=== PATIENT | male | born 1995 | race Caucasian/White ===

== ENCOUNTER 2018-05-21 08:43 | Emergency (ER) | payer BC, OTHER ==
[~2018-05-21] VITALS: Ht 172.7 cm; Wt 63.5 kg
[2018-05-21 08:47] VITALS: BP_SYST 141
== END 2018-05-21 09:08 | disposition home or self-care (01) ==
LOC: SED 08:43
DX: K13.0 Diseases of lips (principal)
CPT/HCPCS: 99283

== ENCOUNTER 2020-01-20 20:13 | Emergency (ER) | payer SELFPAY ==
[~2020-01-20] VITALS: Ht 172.7 cm; Wt 63.5 kg
[2020-01-20 20:30] VITALS: BP_SYST 130
--- NOTE | 2020-01-20 20:40 | NUR ---
Patient triaged and placed in waiting room. VSS and patient appears in no acute distress at this time. Accompanied by self , awaiting available bed, and MD notified of need for MSE.
--- NOTE | 2020-01-20 20:40 | NUR ---
Patient to ER bed 01 to gown for evaluation. Side rails up.
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
--- NOTE | 2020-01-20 21:10 | NUR ---
X-ray at bedside.
[2020-01-20] MEDS ORDERED: IBUPROFEN 400 MG TABLET PO ONE (21:30)
[2020-01-20 22:40] VITALS: BP_SYST 118
--- NOTE | 2020-01-20 22:40 | NUR ---
Patient given written and verbal discharge instructions and verbalizes understanding. ER MD discussed with patient the results and treatment provided. Patient in stable condition. ID arm band removed. NO Rx given. Patient educated on pain management and to follow up with PMD. Pain Scale 2/10. Opportunity for questions provided and answered. Medication side effect fact sheet provided.
== END 2020-01-20 22:40 | disposition home or self-care (01) ==
LOC: SED 20:13
DX: S89.92XA Unspecified injury of left lower leg, initial encounter (principal); V29.9XXA Motorcycle rider (driver) (passenger) injured in unspecified traffic accident, initial encounter; Y93.89 Activity, other specified; Y92.89 Other specified places as the place of occurrence of the external cause; Y99.8 Other external cause status
CPT/HCPCS: 73564; 99283

== ENCOUNTER 2020-04-08 11:13 | Emergency (ER) | payer MEDICAID ==
[~2020-04-08] VITALS: Ht 172.7 cm; Wt 63.5 kg
[2020-04-08 11:17] VITALS: BP_SYST 141
[2020-04-08 13:08] VITALS: BP_SYST 141
== END 2020-04-08 13:09 | disposition home or self-care (01) ==
LOC: SED 11:13
DX: S83.8X2A Sprain of other specified parts of left knee, initial encounter (principal); X50.1XXA Overexertion from prolonged static or awkward postures, initial encounter; Y93.39 Activity, other involving climbing, rappelling and jumping off; Y92.89 Other specified places as the place of occurrence of the external cause; Y99.8 Other external cause status
CPT/HCPCS: 73564; 99283

== ENCOUNTER 2023-12-27 22:57 | Emergency (ER) | payer OTHER, MEDICAID ==
[~2023-12-27] VITALS: Ht 172.7 cm; Wt 65.8 kg
[2023-12-27 23:04] VITALS: BP_SYST 134; PULSE 81; RESP 16; TEMP 99.1; O2SAT 99
[2023-12-27] MEDS: IBUPROFEN 600 MG TABLET PO ONE (23:40)
[2023-12-28] MEDS ORDERED: IBUP-1969 PO (00:22)
[2023-12-28 00:26] VITALS: BP_SYST 134; PULSE 81; RESP 16; TEMP 99.1; O2SAT 99
== END 2023-12-28 00:26 | disposition home or self-care (01) ==
LOC: SED 22:57
DX: S46.812A Strain of other muscles, fascia and tendons at shoulder and upper arm level, left arm, initial encounter (principal); S83.8X2A Sprain of other specified parts of left knee, initial encounter; V89.2XXA Person injured in unspecified motor-vehicle accident, traffic, initial encounter; Y93.89 Activity, other specified; Y92.89 Other specified places as the place of occurrence of the external cause; Y99.8 Other external cause status
CPT/HCPCS: 73030; 73564; 99284